=== PATIENT | female | born 1995 | race Caucasian/White ===

== ENCOUNTER 2018-11-25 01:53 | Inpatient (IN) | payer OTHER ==
[~2018-11-25] VITALS: Ht 160 cm; Wt 102.5 kg
[2018-11-25 02:27] LABS: BILIRUBIN,URINE SMALL (NEG); CLARITY,URINE CLEAR; COLOR,URINE AMBER; NITRITE,URINE NEGATIVE (NEG); PROTEIN,URINE 100 mg/dL (NEG-TRACE)
[2018-11-25 02:51] LABS: BACTERIA,URINE FEW /HPF (0-FEW); SQUAMOUS EPITHELIAL CELL,UR MANY /LPF; WBC,URINE >40 /HPF (0-4)
--- NOTE | 2018-11-25 03:12 | RAD ---
Indication:RUQ PAIN TECHNIQUE: Grayscale, color Doppler and spectral waveform is of the abdomen obtained. COMPARISON:None FINDINGS:The pancreas is within normal limits. CBD is dilated in the region of pancreatic head measuring 1 cm. IVC within normal limits. Main portal vein is patent. Liver is mildly enlarged measuring 19 cm in longest dimension. Distended gallbladder. No pericholecystic fluid. Stones are seen. Gallbladder wall is not appreciably thickened. CBD measures 8 mm in diameter. Right kidney measures 11.1 cm in length without hydronephrosis. IMPRESSION: 1. Mild hepatomegaly. 2. Cholelithiasis with distended gallbladder but without wall thickening or pericholecystic fluid. Findings are nonspecific. If concern for acute cholecystitis persists, further evaluation with HIDA scan recommended. 3. Dilated CBD may be secondary to distal obstructing stone. Further evaluation with MRCP recommended. Electronically signed by: Erasmo Pulido DO (11/25/2018 3:08 AM) [id number]
[2018-11-25 03:20] LABS: BASO % 0 % (0-3); EOS % 0 % (0-3); HEMATOCRIT 35.7 % (36.0-47.0); HEMOGLOBIN 11.2 g/dL (12.0-15.5); LYMPH # 1.4 x10^3/uL (1.0-4.8); LYMPH % 18 % (24-48); MEAN CORPUSCULAR HEMOGLOBIN 24 pg (25-35); MEAN CORPUSCULAR HGB CONC 31 g/dL (31-37); MEAN CORPUSCULAR VOLUME 77 fL (79-100); MONO # 0.2 x10^3/uL (0.0-1.1); MONO % 3 % (0-9); NEUT # 6.4 x10^3uL (1.8-7.7); NEUT % 79 % (31-73); PLATELET COUNT 493 x10^3/uL (140-400); RED BLOOD COUNT 4.62 x10^6/uL (3.50-5.40); RED CELL DISTRIBUTION WIDTH 16.2 % (11.5-14.5); WHITE BLOOD COUNT 8.1 x10^3/uL (4.0-11.0)
[2018-11-25] MEDS ORDERED: fentaNYL PF VIAL 100 MCG/2 ML VIAL IV ONE (03:30)
[2018-11-25 03:35] LABS: CALCIUM 8.7 mg/dL (8.5-10.1); CREATININE 0.8 mg/dL (0.6-1.0); GFR 89.7; POTASSIUM 3.9 mmol/L (3.5-5.1)
[2018-11-25 03:40] LABS: ALBUMIN 3.4 g/dL (3.4-5.0); ALBUMIN/GLOBULIN RATIO 0.9 (1.0-1.7); TOTAL BILIRUBIN 0.9 mg/dL (0.2-1.0); TOTAL PROTEIN 7.2 g/dL (6.4-8.2)
--- NOTE | 2018-11-25 03:57 | PHYS DOC ---
Past Medical History Past Medical History: Gallstones Past Surgical History: No Surgical History Alcohol Use: None Drug Use: None Adult General Chief Complaint Chief Complaint: ABDOMINAL PAIN HPI HPI Patient is a 23 year old F P/W CC OF ABDO PAIN RUQ INTERMITTENT X THE LAST FEW WEEKS. PPD 21 S/P INDUCTION FOR PROTEINURIA. PAIN SHARP RUQ WENT TO [facility] per her report they did not have an ultrasound machine negative for [place] she went home she threw up several times the pain is been constant for 6-8 hours it is radiating around to the back she finally would like to get this taken care of once and for all she was at [place] last week visiting family and had an ultrasound that showed gallstones but she did not want to get the surgery [place]. Review of Systems Review of Systems Constitutional: Denies fever or chills [] Eyes: Denies change in visual acuity, redness, or eye pain [] HENT: Denies nasal congestion or sore throat [] Respiratory: Denies cough or shortness of breath [] Cardiovascular: No additional information not addressed in HPI [] GI: Neurologic: Denies headache, focal weakness or sensory changes [] All other systems were reviewed and found to be within normal limits, except as documented in this note. Current Medications Current Medications Current Medications Medications (Trade) Dose Ordered Sig/Hussein Start Time Stop Time Status Last Admin Dose Admin Fentanyl Citrate (Fentanyl 2ml Vial) 50 mcg 1X ONCE 11/25/18 03:30 11/25/18 03:31 DC 11/25/18 03:34 50 MCG Allergies Allergies Allergies Coded Allergies Type Severity Reaction Last Updated Verified azithromycin Allergy Unknown 11/25/18 Yes Physical Exam Physical Exam Constitutional: Well developed, well nourished, no acute distress, non-toxic appearance. [] HENT: Normocephalic, atraumatic, bilateral external ears normal, oropharynx moist, no oral exudates, nose normal. [] Eyes: PERRLA, EOMI, conjunctiva normal, no discharge. [] Neck: Normal range of motion, no tenderness, supple, no stridor. [] Pulmonary: Normal respiratory effort no increased work of breathing no obvious chest wall trauma Abdomen: Bowel sounds normal, soft, RUQ tenderness, no masses, no pulsatile masses. [] Extremities: No tenderness, no cyanosis, no clubbing, ROM intact, no edema. [] Neurologic: Alert and oriented X 3, normal motor function, normal sensory function, no focal deficits noted. [] Psychologic: Affect normal, judgement normal, mood normal. [] Current Patient Data Vital Signs Vital Signs Date Time Temp Pulse Resp B/P (MAP) Pulse Ox O2 Delivery O2 Flow Rate FiO2 11/25/18 02:15 98.3 74 16 135/77 (96) 98 Room Air 98.3 Lab Values Laboratory Tests Test 11/25/18 01:12 11/25/18 01:55 11/25/18 03:10 POC Urine HCG, Qualitative Hcg negative (Negative) Urine Collection Type Unknown Urine Color Scarlett Urine Clarity Clear Urine pH 8.0 Urine Specific [place] >=1.030 Urine Protein 100 mg/dL (NEG-TRACE) Urine Glucose (UA) Negative mg/dL (NEG) Urine Ketones (Stick) Trace mg/dL (NEG) Urine Blood Negative (NEG) Urine Nitrite Negative (NEG) Urine Bilirubin Small (NEG) Urine Urobilinogen Dipstick 1.0 mg/dL (0.2 mg/dL) Urine Leukocyte Esterase Moderate (NEG) Urine RBC 11-20 /HPF (0-2) Urine WBC >40 /HPF (0-4) Urine Squamous Epithelial Cells Many /LPF Urine Bacteria Few /HPF (0-FEW) Urine Mucus Mod /LPF White Blood Count 8.1 x10^3/uL (4.0-11.0) Red Blood Count 4.62 x10^6/uL (3.50-5.40) Hemoglobin 11.2 g/dL (12.0-15.5) L Hematocrit 35.7 % (36.0-47.0) L Mean Corpuscular Volume 77 fL (79-100) L Mean Corpuscular Hemoglobin 24 pg (25-35) L Mean Corpuscular Hemoglobin Concent 31 g/dL (31-37) Red Cell Distribution Width 16.2 % (11.5-14.5) H Platelet Count 493 x10^3/uL (140-400) H Neutrophils (%) (Auto) 79 % (31-73) H Lymphocytes (%) (Auto) 18 % (24-48) L Monocytes (%) (Auto) 3 % (0-9) Eosinophils (%) (Auto) 0 % (0-3) Basophils (%) (Auto) 0 % (0-3) Neutrophils # (Auto) 6.4 x10^3uL (1.8-7.7) Lymphocytes # (Auto) 1.4 x10^3/uL (1.0-4.8) Monocytes # (Auto) 0.2 x10^3/uL (0.0-1.1) Eosinophils # (Auto) 0.0 x10^3/uL (0.0-0.7) Basophils # (Auto) 0.0 x10^3/uL (0.0-0.2) Sodium Level 143 mmol/L (136-145) Potassium Level 3.9 mmol/L (3.5-5.1) Chloride Level 102 mmol/L (98-107) Carbon Dioxide Level 29 mmol/L (21-32) Anion Gap 12 (6-14) Blood Urea Nitrogen 11 mg/dL (7-20) Creatinine 0.8 mg/dL (0.6-1.0) Estimated GFR (Cockcroft-Gault) 89.7 BUN/Creatinine Ratio 14 (6-20) Glucose Level 98 mg/dL (70-99) Calcium Level 8.7 mg/dL (8.5-10.1) Total Bilirubin 0.9 mg/dL (0.2-1.0) Aspartate Amino Transferase (AST) 62 U/L (15-37) H Alanine Aminotransferase (ALT) 52 U/L (14-59) Alkaline Phosphatase 176 U/L (46-116) H Total Protein 7.2 g/dL (6.4-8.2) Albumin 3.4 g/dL (3.4-5.0) Albumin/Globulin Ratio 0.9 (1.0-1.7) L Lipase 131 U/L (73-393) Laboratory Tests 11/25/18 03:10 Laboratory Tests 11/25/18 03:10 EKG EKG [] Radiology/Procedures Radiology/Procedures [] Impressions: IMPRESSION: 1. Mild hepatomegaly. 2. Cholelithiasis with distended gallbladder but without wall thickening or pericholecystic fluid. Findings are nonspecific. If concern for acute cholecystitis persists, further evaluation with HIDA scan recommended. 3. Dilated CBD may be secondary to distal obstructing stone. Further evaluation with MRCP recommended. Electronically signed by: Erasmo Snowden DO (11/25/2018 3:08 AM) [facility] DICTATED and SIGNED BY: ERASMO SNOWDEN DO DATE: 11/25/18307 Course & Med Decision Making Course & Med Decision Making Pertinent Labs and Imaging studies reviewed. (See chart for details) []SYMPTOMATIC BILIARY DISEASE COULD BE EARLY CHOLECYSTITIS V. CHOLEDOCHOLITHIASIS, WILL GIVE PAIN CONTROL, ABX, ADMIT TO CASTLE PER USUAL PROTOCOL INPATIENT CONSULTS. FURTHER IMAGING WILL BE NEEDED MOST LIKELY Dragon Disclaimer Dragon Disclaimer This electronic medical record was generated, in whole or in part, using a voice recognition dictation system. Departure Departure Impression: Primary Impression: Cholelithiasis Disposition: ADMITTED INPATIENT Admitting Physician: Cherry Barrera Condition: STABLE Referrals: NO PCP (PCP) ARCADIO WARREN MD Nov 25, 2018 03:57
[2018-11-25] MEDS ORDERED: ONDANSETRON PF 4 MG/2 ML VIAL. IV PRN ×2 (04:00→09:30)
[2018-11-25] MEDS ORDERED: PIPERACILLIN/TAZOBACTAM 3.375 GM in IV NORMAL SALINE 50ML 50 ML IV ONE (04:30)
[2018-11-25] MEDS: IV NORMAL SALINE 1000ML BAG 1,000 ML IV SCH ×2 (04:50→14:17)
[2018-11-25] MEDS: MORPHINE SULFATE 4 MG/ML VIAL. IV PRN ×4 (05:02→19:53)
[2018-11-25 05:18] VITALS: BP 109/61
[2018-11-25] MEDS ORDERED: BACITRACIN 50,000 UNIT in IV NORMAL SALINE 1000ML BAG 1,000 ML IRR ONE (06:00)
--- NOTE | 2018-11-25 06:32 | NUR ---
Admitted to room 420 at 0518 from ED, admission care done. POC discussed with patient and verbalized understanding.
[2018-11-25 07:00] VITALS: BP 106/52
--- NOTE | 2018-11-25 08:46 | PDOC2 ---
TOMMY PARSON HEMODIALYSIS CHARGE NURSE 11/25/18 0846: CONSULT Date of Consult Date of Consult DATE: 11/25/18 TIME: 08:42 Reason for Consult Reason for Consult: abdominal pain Referring Physician Referring Physician: ER Identification/Chief Complaint Chief Complaint abdominal pain Source Source: Chart review, Patient History of Present Illness Reason for Visit: RUQ pain, intermittently during This time worse, subjective fevers, chills Nausea, emesis No aggravating factors per PT 3 weeks from vaginal delivery Past Medical History Past Medical History no pertinent hx Past Surgical History Past Surgical History: No pertinent history Family History Family History: Other (noncontributory to current illness ) Social History No ALCOHOL: none Drugs: None Lives: with Family Current Problem List Problem List Problems Medical Problems: (1) Cholelithiasis Status: Acute Current Medications Current Medications Current Medications Fentanyl Citrate (Fentanyl 2ml Vial) 50 mcg 1X ONCE IV Last administered on 08/05at 03:34; Start 11/25/18 at 03:30; Stop 11/25/18 at 03:31; Status DC Ondansetron HCl (Zofran) 4 mg PRN Q8HRS PRN IV NAUSEA/VOMITING Last administered on 11/25/18at 05:01; Start 11/25/18 at 04:00; Stop 11/26/18 at 03:59 Morphine Sulfate (Morphine Sulfate) 4 mg PRN Q2HR PRN IV PAIN Last administered on 11/25/18at 05:02; Start 11/25/18 at 04:00; Stop 11/26/18 at 03:59 Sodium Chloride 1,000 ml @ 100 mls/hr Q10H IV Last administered on 11/25/18at 04:50; Start 11/25/18 at 04:00; Stop 11/26/18 at 03:59 Piperacillin Sod/ Tazobactam Sod 3.375 gm/Sodium Chloride 50 ml @ 100 mls/hr 1X ONCE IV Last administered on 11/25/18at 04:51; Start 11/25/18 at 04:30; Stop 11/25/18 at 04:59; Status DC Allergies Allergies: Coded Allergies: azithromycin (Verified Allergy, Unknown, 11/25/18) ROS General: YES: Fatigue, Appetite (loss) PSYCHOLOGICAL ROS: No: Anxiety, Depression Eyes: No Blurry vision, No Double vision HEENT: No: Heacaches, Sore Throat Hematological and Lymphatic: No: Bleeding Problems, Blood Clots Respiratory: No: Cough, Shortness of breath Cardiovascular: No Chest Pain, No Palpitations Genitourinary: No Dysuria, No Hematuria Musculoskeletal: No Joint Pain, No Muscle Pain Neurological: No Confusion, No Memory Loss Skin: No Pruritus, No Rash Physical Exam General: Alert, Oriented X3, Cooperative, No acute distress HEENT: PERRLA, Mucous membr. moist/pink Lungs: Clear to auscultation, Normal air movement Heart: Regular rate, Normal S1, Normal S2, No murmurs Abdomen: Soft, Other (RUQ TTP) Extremities: No clubbing, No cyanosis Skin: No rashes, No breakdown Neuro: Normal gait, Normal speech Psych/Mental Status: Mental status NL, Mood NL MUSCULOSKELETAL: No deformity, No swelling Vitals VITALS Vital Signs Date Time Temp Pulse Resp B/P (MAP) Pulse Ox O2 Delivery O2 Flow Rate FiO2 11/25/18 07:36 Room Air 11/25/18 07:00 98.1 71 16 106/52 (70) 94 98.1 Labs Labs Laboratory Tests Test 11/25/18 01:12 11/25/18 01:55 11/25/18 03:10 Bedside Urine HCG, Qualitative Hcg negative (Negative) Urine Collection Type Unknown Urine Color Scarlett Urine Clarity Clear Urine pH 8.0 Urine Specific [place] >=1.030 Urine Protein 100 mg/dL (NEG-TRACE) Urine Glucose (UA) Negative mg/dL (NEG) Urine Ketones (Stick) Trace mg/dL (NEG) Urine Blood Negative (NEG) Urine Nitrite Negative (NEG) Urine Bilirubin Small (NEG) Urine Urobilinogen Dipstick 1.0 mg/dL (0.2 mg/dL) Urine Leukocyte Esterase Moderate (NEG) Urine RBC 11-20 /HPF (0-2) Urine WBC >40 /HPF (0-4) Urine Squamous Epithelial Cells Many /LPF Urine Bacteria Few /HPF (0-FEW) Urine Mucus Mod /LPF White Blood Count 8.1 x10^3/uL (4.0-11.0) Red Blood Count 4.62 x10^6/uL (3.50-5.40) Hemoglobin 11.2 g/dL (12.0-15.5) Hematocrit 35.7 % (36.0-47.0) Mean Corpuscular Volume 77 fL (79-100) Mean Corpuscular Hemoglobin 24 pg (25-35) Mean Corpuscular Hemoglobin Concent 31 g/dL (31-37) Red Cell Distribution Width 16.2 % (11.5-14.5) Platelet Count 493 x10^3/uL (140-400) Neutrophils (%) (Auto) 79 % (31-73) Lymphocytes (%) (Auto) 18 % (24-48) Monocytes (%) (Auto) 3 % (0-9) Eosinophils (%) (Auto) 0 % (0-3) Basophils (%) (Auto) 0 % (0-3) Neutrophils # (Auto) 6.4 x10^3uL (1.8-7.7) Lymphocytes # (Auto) 1.4 x10^3/uL (1.0-4.8) Monocytes # (Auto) 0.2 x10^3/uL (0.0-1.1) Eosinophils # (Auto) 0.0 x10^3/uL (0.0-0.7) Basophils # (Auto) 0.0 x10^3/uL (0.0-0.2) Sodium Level 143 mmol/L (136-145) Potassium Level 3.9 mmol/L (3.5-5.1) Chloride Level 102 mmol/L (98-107) Carbon Dioxide Level 29 mmol/L (21-32) Anion Gap 12 (6-14) Blood Urea Nitrogen 11 mg/dL (7-20) Creatinine 0.8 mg/dL (0.6-1.0) Estimated GFR (Cockcroft-Gault) 89.7 BUN/Creatinine Ratio 14 (6-20) Glucose Level 98 mg/dL (70-99) Calcium Level 8.7 mg/dL (8.5-10.1) Total Bilirubin 0.9 mg/dL (0.2-1.0) Aspartate Amino Transf (AST/SGOT) 62 U/L (15-37) Alanine Aminotransferase (ALT/SGPT) 52 U/L (14-59) Alkaline Phosphatase 176 U/L (46-116) Total Protein 7.2 g/dL (6.4-8.2) Albumin 3.4 g/dL (3.4-5.0) Albumin/Globulin Ratio 0.9 (1.0-1.7) Lipase 131 U/L (73-393) Laboratory Tests Test 11/25/18 01:12 11/25/18 01:55 11/25/18 03:10 Bedside Urine HCG, Qualitative Hcg negative (Negative) Urine Collection Type Unknown Urine Color Scarlett Urine Clarity Clear Urine pH 8.0 Urine Specific [place] >=1.030 Urine Protein 100 mg/dL (NEG-TRACE) Urine Glucose (UA) Negative mg/dL (NEG) Urine Ketones (Stick) Trace mg/dL (NEG) Urine Blood Negative (NEG) Urine Nitrite Negative (NEG) Urine Bilirubin Small (NEG) Urine Urobilinogen Dipstick 1.0 mg/dL (0.2 mg/dL) Urine Leukocyte Esterase Moderate (NEG) Urine RBC 11-20 /HPF (0-2) Urine WBC >40 /HPF (0-4) Urine Squamous Epithelial Cells Many /LPF Urine Bacteria Few /HPF (0-FEW) Urine Mucus Mod /LPF White Blood Count 8.1 x10^3/uL (4.0-11.0) Red Blood Count 4.62 x10^6/uL (3.50-5.40) Hemoglobin 11.2 g/dL (12.0-15.5) Hematocrit 35.7 % (36.0-47.0) Mean Corpuscular Volume 77 fL (79-100) Mean Corpuscular Hemoglobin 24 pg (25-35) Mean Corpuscular Hemoglobin Concent 31 g/dL (31-37) Red Cell Distribution Width 16.2 % (11.5-14.5) Platelet Count 493 x10^3/uL (140-400) Neutrophils (%) (Auto) 79 % (31-73) Lymphocytes (%) (Auto) 18 % (24-48) Monocytes (%) (Auto) 3 % (0-9) Eosinophils (%) (Auto) 0 % (0-3) Basophils (%) (Auto) 0 % (0-3) Neutrophils # (Auto) 6.4 x10^3uL (1.8-7.7) Lymphocytes # (Auto) 1.4 x10^3/uL (1.0-4.8) Monocytes # (Auto) 0.2 x10^3/uL (0.0-1.1) Eosinophils # (Auto) 0.0 x10^3/uL (0.0-0.7) Basophils # (Auto) 0.0 x10^3/uL (0.0-0.2) Sodium Level 143 mmol/L (136-145) Potassium Level 3.9 mmol/L (3.5-5.1) Chloride Level 102 mmol/L (98-107) Carbon Dioxide Level 29 mmol/L (21-32) Anion Gap 12 (6-14) Blood Urea Nitrogen 11 mg/dL (7-20) Creatinine 0.8 mg/dL (0.6-1.0) Estimated GFR (Cockcroft-Gault) 89.7 BUN/Creatinine Ratio 14 (6-20) Glucose Level 98 mg/dL (70-99) Calcium Level 8.7 mg/dL (8.5-10.1) Total Bilirubin 0.9 mg/dL (0.2-1.0) Aspartate Amino Transf (AST/SGOT) 62 U/L (15-37) Alanine Aminotransferase (ALT/SGPT) 52 U/L (14-59) Alkaline Phosphatase 176 U/L (46-116) Total Protein 7.2 g/dL (6.4-8.2) Albumin 3.4 g/dL (3.4-5.0) Albumin/Globulin Ratio 0.9 (1.0-1.7) Lipase 131 U/L (73-393) Assessment/Plan Assessment/Plan abdominal pain cholelithiasis, distended GB, no inflammation, no pericholecystic fluid dilated CBD, LFTs normal will consult GI typically like to wait 6 weeks prior to surgery, will review with HOLDEN Pierson MD 11/25/18 1721: CONSULT Assessment/Plan Assessment/Plan pt seen, interviewed and examined earlier today as above has issues (moving soon, insurance issues) that she would like to proceed with surgery I explained it would be preferable to wait a few more weeks, but she is asking to proceed explained risks including but not limited to bleeding, infection, injury to bowel, liver or bile ducts with bile leak or bile blockage requiring further surgical interventions, possible open procedure or diarrhea post op also increased risks of DVT given the post state. she understands and would like to proceed tentatively on schedule for tomorrow will d/w her again in the AM Thanks for consult TOMMY PARSON APRN Nov 25, 2018 08:46 HOLDEN JOSHI MD Nov 25, 2018 17:21
[2018-11-25] MEDS ORDERED: ACETAMINOPHEN/CODEINE 300/30MG TABLET. PO PRN (09:30)
--- NOTE | 2018-11-25 09:57 | PDOC2 ---
GI CONSULT Reason For Consult: Cholelithiasis, possible choledocholithiasis HPI: HPI: 23 y/o female who gave 3 weeks ago @ [facility] - says was induced for RUQ pain and proteinuria. Then traveled to [place] where she was seen in an ER for upper abd pain - was told she had gallstones and that she should have surgery. Admitted through ER here last night - same pain (constant but getting worse - "band", upper abd wrapping around bilaterally, can spread diffusely) and n/v (twice). Normal WBC, Hgb 11.2, MCV 77, bili 0.9, AST 62, ALT 52, Alk Phos 176, lipase 131. On US: mild hepatomegaly, cholelithiasis w/ distended GB, dilated CBD (8mm ). H/o heartburn during - treated w/ Tums and also briefly with Nexium which was ineffective. Heartburn resolved after delivery. No dysphagia. No diarrhea, hematochezia, melena, or hematemesis. Some constipation since delivery - last stooled a couple days ago. No previous EGD or colonoscopy. No liver or pancreas history. PMH: PMH: denies FH: Family History: No pertinent hx (denies GI cancers) Social History: Smoke: No ALCOHOL: none Drugs: None ROS: GEN: Denies fevers, chills, sweats HEENT: Denies blurred vision, sore throat CV: Denies chest pain RESP: Denies shortness of air, cough GI: Per HPI : Denies hematuria, dysuria ENDO: Denies weight changes NEURO: Denies confusion, dizziness MSK: Denies weakness, joint pain/swelling SKIN: Denies jaundice, pruritus Vitals: Vitals: Vital Signs Date Time Temp Pulse Resp B/P (MAP) Pulse Ox O2 Delivery O2 Flow Rate FiO2 11/25/18 09:13 Room Air 11/25/18 07:00 98.1 71 16 106/52 (70) 94 98.1 Labs: Labs: Laboratory Tests Test 11/25/18 01:12 11/25/18 01:55 11/25/18 03:10 Bedside Urine HCG, Qualitative Hcg negative (Negative) Urine Collection Type Unknown Urine Color Scarlett Urine Clarity Clear Urine pH 8.0 Urine Specific [place] >=1.030 Urine Protein 100 mg/dL (NEG-TRACE) Urine Glucose (UA) Negative mg/dL (NEG) Urine Ketones (Stick) Trace mg/dL (NEG) Urine Blood Negative (NEG) Urine Nitrite Negative (NEG) Urine Bilirubin Small (NEG) Urine Urobilinogen Dipstick 1.0 mg/dL (0.2 mg/dL) Urine Leukocyte Esterase Moderate (NEG) Urine RBC 11-20 /HPF (0-2) Urine WBC >40 /HPF (0-4) Urine Squamous Epithelial Cells Many /LPF Urine Bacteria Few /HPF (0-FEW) Urine Mucus Mod /LPF White Blood Count 8.1 x10^3/uL (4.0-11.0) Red Blood Count 4.62 x10^6/uL (3.50-5.40) Hemoglobin 11.2 g/dL (12.0-15.5) Hematocrit 35.7 % (36.0-47.0) Mean Corpuscular Volume 77 fL (79-100) Mean Corpuscular Hemoglobin 24 pg (25-35) Mean Corpuscular Hemoglobin Concent 31 g/dL (31-37) Red Cell Distribution Width 16.2 % (11.5-14.5) Platelet Count 493 x10^3/uL (140-400) Neutrophils (%) (Auto) 79 % (31-73) Lymphocytes (%) (Auto) 18 % (24-48) Monocytes (%) (Auto) 3 % (0-9) Eosinophils (%) (Auto) 0 % (0-3) Basophils (%) (Auto) 0 % (0-3) Neutrophils # (Auto) 6.4 x10^3uL (1.8-7.7) Lymphocytes # (Auto) 1.4 x10^3/uL (1.0-4.8) Monocytes # (Auto) 0.2 x10^3/uL (0.0-1.1) Eosinophils # (Auto) 0.0 x10^3/uL (0.0-0.7) Basophils # (Auto) 0.0 x10^3/uL (0.0-0.2) Sodium Level 143 mmol/L (136-145) Potassium Level 3.9 mmol/L (3.5-5.1) Chloride Level 102 mmol/L (98-107) Carbon Dioxide Level 29 mmol/L (21-32) Anion Gap 12 (6-14) Blood Urea Nitrogen 11 mg/dL (7-20) Creatinine 0.8 mg/dL (0.6-1.0) Estimated GFR (Cockcroft-Gault) 89.7 BUN/Creatinine Ratio 14 (6-20) Glucose Level 98 mg/dL (70-99) Calcium Level 8.7 mg/dL (8.5-10.1) Total Bilirubin 0.9 mg/dL (0.2-1.0) Aspartate Amino Transf (AST/SGOT) 62 U/L (15-37) Alanine Aminotransferase (ALT/SGPT) 52 U/L (14-59) Alkaline Phosphatase 176 U/L (46-116) Total Protein 7.2 g/dL (6.4-8.2) Albumin 3.4 g/dL (3.4-5.0) Albumin/Globulin Ratio 0.9 (1.0-1.7) Lipase 131 U/L (73-393) Allergies: Coded Allergies: azithromycin (Verified Allergy, Unknown, 11/25/18) Medications: Current Medications Medications (Trade) Dose Ordered Sig/Hussein Route PRN Reason Start Time Stop Time Status Last Admin Dose Admin Fentanyl Citrate (Fentanyl 2ml Vial) 50 mcg 1X ONCE IV 11/25/18 03:30 11/25/18 03:31 DC 11/25/18 03:34 Ondansetron HCl (Zofran) 4 mg PRN Q8HRS PRN IV NAUSEA/VOMITING 11/25/18 04:00 11/25/18 09:24 DC 11/25/18 05:01 Morphine Sulfate (Morphine Sulfate) 4 mg PRN Q2HR PRN IV PAIN 11/25/18 04:00 11/26/18 03:59 11/25/18 09:13 Sodium Chloride 1,000 ml @ 100 mls/hr Q10H IV 11/25/18 04:00 11/26/18 03:59 11/25/18 04:50 Piperacillin Sod/ Tazobactam Sod 3.375 gm/Sodium Chloride 50 ml @ 100 mls/hr 1X ONCE IV 11/25/18 04:30 11/25/18 04:59 DC 11/25/18 04:51 Imaging: Imaging: RUQ US IMPRESSION: 1. Mild hepatomegaly. 2. Cholelithiasis with distended gallbladder but without wall thickening or pericholecystic fluid. Findings are nonspecific. If concern for acute cholecystitis persists, further evaluation with HIDA scan recommended. 3. Dilated CBD may be secondary to distal obstructing stone. Further evaluation with MRCP recommended. PE: GEN: NAD HEENT: Atraumatic, PERRL LUNGS: CTAB HEART: RRR ABD: NABS, S/ND, RUQ tenderness EXTREMITY: No edema SKIN: No rashes, no jaundice NEURO/PSYCH: A & O 3 A/P: A/P: Upper abd pain, n/v Cholelithiasis, dilated CBD (8mm) H/o heartburn - resolved after recent delivery ?constipation Anemia CRC screen - average risk -- D/w Dr. Orr - recommend cholecystectomy w/ IOC considering normal bili. RN reports surgery would ideally wait til 6 weeks . MARILOU MARIE Nov 25, 2018 09:57
--- NOTE | 2018-11-25 10:58 | NUR ---
SW following for discharge planning. Discussed with RN, RN advised no SW needs and anticipates possible discharge home with self care today (11/25/18).
[2018-11-25 11:00] VITALS: BP 108/55
--- NOTE | 2018-11-25 11:08 | PDOC1 ---
History and Physical Date of Admission Date of Admission DATE: 11/25/18 TIME: 11:04 Identification/Chief Complaint Chief Complaint abd pain Source Source: Caregiver, Chart review, Patient History of Present Illness History of Present Illness 23-year-old obese white female with a BMI 40 was 3 weeks , started to have abdominal pain right upper quadrant immediately days after giving . It was a normal vaginal delivery with no complications. No fever, no diarrhea. No emesis. Imaging shows cholelithiasis with cholecystitis and maybe CBD stones. Hence GS and GI consulted. GS is worrisome to do surgery 3 weeks - they usually do at 6 weeks and patient is aware of this. Patient tells me she will lose her insurance next week if she is moving to another state next week and hence she would like to have the surgery while in- house today. Patient has been nothing by mouth. I did relay this information to mid level and she will discuss with GS. GI also consulted, so far waiting for GS decision about surgery or neurosurgery Otherwise patient has no other past medical history Past Medical History Cardiovascular: No pertinent hx Pulmonary: No pertinent hx GI: No pertinent hx Heme/Onc: No pertinent hx Hepatobiliary: No pertinent hx Psych: No pertinent hx Rheumatologic: No pertinent hx Infectious disease: No pertinent hx ENT: No pertinent hx Renal/: No pertinent hx Endocrine: No pertinent hx Dermatology: No pertinent hx Past Surgical History Past Surgical History: Other (NSD 3 weeks ago), No pertinent history Family History Family History: Other (noncontributory to current illness ) Social History Smoke: No ALCOHOL: none Drugs: None Current Problem List Problem List Problems Medical Problems: (1) Cholelithiasis Status: Acute Current Medications Current Medications Current Medications Fentanyl Citrate (Fentanyl 2ml Vial) 50 mcg 1X ONCE IV Last administered on 08/05at 03:34; Start 11/25/18 at 03:30; Stop 11/25/18 at 03:31; Status DC Ondansetron HCl (Zofran) 4 mg PRN Q8HRS PRN IV NAUSEA/VOMITING Last administered on 11/25/18at 05:01; Start 11/25/18 at 04:00; Stop 11/25/18 at 09:24 ; Status DC Morphine Sulfate (Morphine Sulfate) 4 mg PRN Q2HR PRN IV PAIN Last administered on 11/25/18at 09:13; Start 11/25/18 at 04:00; Stop 11/26/18 at 03:59 Sodium Chloride 1,000 ml @ 100 mls/hr Q10H IV Last administered on 11/25/18at 04:50; Start 11/25/18 at 04:00; Stop 11/26/18 at 03:59 Piperacillin Sod/ Tazobactam Sod 3.375 gm/Sodium Chloride 50 ml @ 100 mls/hr 1X ONCE IV Last administered on 11/25/18at 04:51; Start 11/25/18 at 04:30; Stop 11/25/18 at 04:59; Status DC Ondansetron HCl (Zofran) 4 mg PRN Q6HRS PRN IV NAUSEA/VOMITING; Start 11/25/18 at 09:30 Acetaminophen (Tylenol) 500 mg PRN Q6HRS PRN PO MILD PAIN / TEMP; Start at 09:30 Acetaminophen/ Codeine Phosphate (Tylenol #3) 1 tab PRN Q6HRS PRN PO MODERATE- SEVERE PAIN; Start 11/25/18 at 09:30 Polyethylene Glycol (miraLAX PACKET) 17 gm DAILY PO ; Start 11/25/18 at 10:30 Allergies Allergies: Coded Allergies: azithromycin (Verified Allergy, Unknown, 11/25/18) ROS Review of System As per history of present illness, the rest of ROS 14 point negative Physical Exam General: Alert, Oriented X3, Cooperative, No acute distress HEENT: Atraumatic, EOMI Lungs: Clear to auscultation, Normal air movement Heart: S1S2, RRR, no thrills, no rubs, no murmurs Cardiovascular: S1, S2 Breasts: Normal, Rt breast nml w/o mass, Lt breast nml w/o mass, Nipples normal Abdomen: Soft, Other (right upper quadrant pain on palpation, normoactive bowel sounds, no rebound, no guarding) Rectal Exam: not examined PELVIC: Nml ext genitalia Extremities: No clubbing, No cyanosis, No edema, Normal pulses, No tenderness/ swelling Skin: No rashes, No breakdown, No significant lesion Neuro: Normal gait, Normal speech, Strength at 5/5 X4 ext, Normal tone, Sensation intact, Cranial nerves 3-12 NL, Reflexes 2+ Psych/Mental Status: Mental status NL, Mood NL Vitals Vitals Vital Signs Date Time Temp Pulse Resp B/P (MAP) Pulse Ox O2 Delivery O2 Flow Rate FiO2 11/25/18 10:01 Room Air 11/25/18 07:00 98.1 71 16 106/52 (70) 94 98.1 Labs Labs Laboratory Tests Test 11/25/18 01:12 11/25/18 01:55 11/25/18 03:10 Bedside Urine HCG, Qualitative Hcg negative (Negative) Urine Collection Type Unknown Urine Color Scarlett Urine Clarity Clear Urine pH 8.0 Urine Specific [place] >=1.030 Urine Protein 100 mg/dL (NEG-TRACE) Urine Glucose (UA) Negative mg/dL (NEG) Urine Ketones (Stick) Trace mg/dL (NEG) Urine Blood Negative (NEG) Urine Nitrite Negative (NEG) Urine Bilirubin Small (NEG) Urine Urobilinogen Dipstick 1.0 mg/dL (0.2 mg/dL) Urine Leukocyte Esterase Moderate (NEG) Urine RBC 11-20 /HPF (0-2) Urine WBC >40 /HPF (0-4) Urine Squamous Epithelial Cells Many /LPF Urine Bacteria Few /HPF (0-FEW) Urine Mucus Mod /LPF White Blood Count 8.1 x10^3/uL (4.0-11.0) Red Blood Count 4.62 x10^6/uL (3.50-5.40) Hemoglobin 11.2 g/dL (12.0-15.5) Hematocrit 35.7 % (36.0-47.0) Mean Corpuscular Volume 77 fL (79-100) Mean Corpuscular Hemoglobin 24 pg (25-35) Mean Corpuscular Hemoglobin Concent 31 g/dL (31-37) Red Cell Distribution Width 16.2 % (11.5-14.5) Platelet Count 493 x10^3/uL (140-400) Neutrophils (%) (Auto) 79 % (31-73) Lymphocytes (%) (Auto) 18 % (24-48) Monocytes (%) (Auto) 3 % (0-9) Eosinophils (%) (Auto) 0 % (0-3) Basophils (%) (Auto) 0 % (0-3) Neutrophils # (Auto) 6.4 x10^3uL (1.8-7.7) Lymphocytes # (Auto) 1.4 x10^3/uL (1.0-4.8) Monocytes # (Auto) 0.2 x10^3/uL (0.0-1.1) Eosinophils # (Auto) 0.0 x10^3/uL (0.0-0.7) Basophils # (Auto) 0.0 x10^3/uL (0.0-0.2) Sodium Level 143 mmol/L (136-145) Potassium Level 3.9 mmol/L (3.5-5.1) Chloride Level 102 mmol/L (98-107) Carbon Dioxide Level 29 mmol/L (21-32) Anion Gap 12 (6-14) Blood Urea Nitrogen 11 mg/dL (7-20) Creatinine 0.8 mg/dL (0.6-1.0) Estimated GFR (Cockcroft-Gault) 89.7 BUN/Creatinine Ratio 14 (6-20) Glucose Level 98 mg/dL (70-99) Calcium Level 8.7 mg/dL (8.5-10.1) Total Bilirubin 0.9 mg/dL (0.2-1.0) Aspartate Amino Transf (AST/SGOT) 62 U/L (15-37) Alanine Aminotransferase (ALT/SGPT) 52 U/L (14-59) Alkaline Phosphatase 176 U/L (46-116) Total Protein 7.2 g/dL (6.4-8.2) Albumin 3.4 g/dL (3.4-5.0) Albumin/Globulin Ratio 0.9 (1.0-1.7) Lipase 131 U/L (73-393) Laboratory Tests Test 11/25/18 01:12 11/25/18 01:55 11/25/18 03:10 Bedside Urine HCG, Qualitative Hcg negative (Negative) Urine Collection Type Unknown Urine Color Scarlett Urine Clarity Clear Urine pH 8.0 Urine Specific [place] >=1.030 Urine Protein 100 mg/dL (NEG-TRACE) Urine Glucose (UA) Negative mg/dL (NEG) Urine Ketones (Stick) Trace mg/dL (NEG) Urine Blood Negative (NEG) Urine Nitrite Negative (NEG) Urine Bilirubin Small (NEG) Urine Urobilinogen Dipstick 1.0 mg/dL (0.2 mg/dL) Urine Leukocyte Esterase Moderate (NEG) Urine RBC 11-20 /HPF (0-2) Urine WBC >40 /HPF (0-4) Urine Squamous Epithelial Cells Many /LPF Urine Bacteria Few /HPF (0-FEW) Urine Mucus Mod /LPF White Blood Count 8.1 x10^3/uL (4.0-11.0) Red Blood Count 4.62 x10^6/uL (3.50-5.40) Hemoglobin 11.2 g/dL (12.0-15.5) Hematocrit 35.7 % (36.0-47.0) Mean Corpuscular Volume 77 fL (79-100) Mean Corpuscular Hemoglobin 24 pg (25-35) Mean Corpuscular Hemoglobin Concent 31 g/dL (31-37) Red Cell Distribution Width 16.2 % (11.5-14.5) Platelet Count 493 x10^3/uL (140-400) Neutrophils (%) (Auto) 79 % (31-73) Lymphocytes (%) (Auto) 18 % (24-48) Monocytes (%) (Auto) 3 % (0-9) Eosinophils (%) (Auto) 0 % (0-3) Basophils (%) (Auto) 0 % (0-3) Neutrophils # (Auto) 6.4 x10^3uL (1.8-7.7) Lymphocytes # (Auto) 1.4 x10^3/uL (1.0-4.8) Monocytes # (Auto) 0.2 x10^3/uL (0.0-1.1) Eosinophils # (Auto) 0.0 x10^3/uL (0.0-0.7) Basophils # (Auto) 0.0 x10^3/uL (0.0-0.2) Sodium Level 143 mmol/L (136-145) Potassium Level 3.9 mmol/L (3.5-5.1) Chloride Level 102 mmol/L (98-107) Carbon Dioxide Level 29 mmol/L (21-32) Anion Gap 12 (6-14) Blood Urea Nitrogen 11 mg/dL (7-20) Creatinine 0.8 mg/dL (0.6-1.0) Estimated GFR (Cockcroft-Gault) 89.7 BUN/Creatinine Ratio 14 (6-20) Glucose Level 98 mg/dL (70-99) Calcium Level 8.7 mg/dL (8.5-10.1) Total Bilirubin 0.9 mg/dL (0.2-1.0) Aspartate Amino Transf (AST/SGOT) 62 U/L (15-37) Alanine Aminotransferase (ALT/SGPT) 52 U/L (14-59) Alkaline Phosphatase 176 U/L (46-116) Total Protein 7.2 g/dL (6.4-8.2) Albumin 3.4 g/dL (3.4-5.0) Albumin/Globulin Ratio 0.9 (1.0-1.7) Lipase 131 U/L (73-393) VTE Prophylaxis Ordered VTE Prophylaxis Devices: Yes VTE Pharmacological Prophylaxi: Yes Assessment/Plan Assessment/Plan Cholelithiasis with cholecystitis, symptomatic 3 weeks Overweight, BMI 40 Plan: still nothing by mouth Await GS Rounds Discussed with GS/GI and RN If patient goes home today I have some pain meds on chart SAUL BIRCH MD Nov 25, 2018 11:08
[2018-11-25] MEDS: ACETAMINOPHEN 500 MG TABLET PO PRN (13:45)
[2018-11-25] MEDS: POLYETHYLENE GLYCOL 3350 17 GM PACKET. PO SCH (13:46)
[2018-11-25 15:00] VITALS: BP 106/46
[2018-11-25] MEDS ORDERED: ENOXAPARIN 40 MG/0.4 ML SYRINGE. SQ ONE (17:30)
[2018-11-25 19:00] VITALS: BP 123/53
[2018-11-25 23:00] VITALS: BP 125/44
[2018-11-26] VITALS (12 sets, daily range): BP systolic 89–132; BP diastolic 41–61
[2018-11-26] MEDS: ACETAMINOPHEN 500 MG TABLET PO PRN (00:16)
[2018-11-26] MEDS: IV NORMAL SALINE 1000ML BAG 1,000 ML IV SCH (00:17)
[2018-11-26] MEDS: MORPHINE SULFATE 4 MG/ML VIAL. IV PRN (05:06)
[2018-11-26] MEDS ORDERED: IOHEXOL 300 MG/ML 100ML VIAL. ONE (06:01)
[2018-11-26] MEDS ORDERED: SURGICEL HEMOSTAT 4X8 EACH. ONE (06:01)
[2018-11-26] MEDS ORDERED: BUPIVAC MPF-EPI 0.5%-1:200000 30 ML VIAL. ONE (06:01)
[2018-11-26] MEDS ORDERED: GLUCAGON,HUMAN RECOMBINANT 1 MG/ML VIAL. ONE (06:01)
[2018-11-26] MEDS ORDERED: ONDANSETRON PF 4 MG/2 ML VIAL. IV PRN ×2 (07:00→10:15)
[2018-11-26] MEDS ORDERED: HYDROmorphone 2 MG/ML VIAL IV PRN ×2 (07:00→10:15)
[2018-11-26] MEDS ORDERED: PROCHLORPERAZINE 10 MG/2 ML VIAL. IV PRN (07:00)
[2018-11-26] MEDS ORDERED: fentaNYL PF VIAL 100 MCG/2 ML VIAL IV PRN ×2 (07:00)
[2018-11-26] MEDS ORDERED: MORPHINE SULFATE 2 MG/ML VIAL. IV PRN (07:00)
[2018-11-26] MEDS ORDERED: IV RINGERS,LACTATED 1000ML 1,000 ML IV SCH (07:00)
[2018-11-26] MEDS ORDERED: LIDOCAINE 1% PF 2 ML VIAL. ID PRN (07:00)
--- NOTE | 2018-11-26 07:30 | NUR ---
Pt to surgery by bed. Head to toe assessment done prior to leaving the floor. No family at bedside.
[2018-11-26] MEDS ORDERED: PROPOFOL 20 ML IV ONE (07:36)
[2018-11-26] MEDS ORDERED: ROCURONIUM 50 MG/5 ML VIAL. ONE (07:36)
[2018-11-26] MEDS ORDERED: LIDOCAINE 2% PF 5 ML VIAL. ONE (07:36)
[2018-11-26] MEDS ORDERED: SUCCINYLCHOLINE 200 MG/10 ML VIAL. ONE (07:36)
[2018-11-26] MEDS ORDERED: fentaNYL PF VIAL 100 MCG/2 ML VIAL ONE ×2 (07:36→08:56)
[2018-11-26] MEDS ORDERED: ONDANSETRON PF 4 MG/2 ML VIAL. ONE (08:30)
[2018-11-26] MEDS ORDERED: DEXAMETHASONE SOD PHOS 20 MG/5 ML VIAL. ONE (08:30)
[2018-11-26] MEDS ORDERED: NEOSTIGMINE 10 MG/10 ML VIAL. ONE (08:34)
[2018-11-26] MEDS ORDERED: SEVOFLURANE 31 TO 60 MINUTES. IH ONE (08:34)
[2018-11-26] MEDS ORDERED: GLYCOPYRROLATE 1 MG/5 ML VIAL. ONE (08:35)
[2018-11-26] MEDS: POLYETHYLENE GLYCOL 3350 17 GM PACKET. PO SCH (09:00)
--- NOTE | 2018-11-26 09:31 | RAD ---
Intraoperative cholangiogram, 11/26/2018: HISTORY: Cholecystectomy 5 spot films from surgery are presented for review. Contrast has been injected into the cystic duct remnant. 0.29 minutes of fluoroscopy time was utilized. There is mild dilatation of the common bile duct. There is no extension of contrast into the duodenum. No definite intraluminal filling defect is seen. The incompletely opacified intrahepatic ducts are unremarkable. No contrast extravasation is evident. IMPRESSION: Obstruction to flow of contrast into the duodenum which could be due to ampullary spasm versus obstruction by an occult calculus, stricture or neoplasm. Electronically signed by: Walt Calderon MD (11/26/2018 9:28 AM) [facility]
[2018-11-26] MEDS ORDERED: ENOXAPARIN 40 MG/0.4 ML SYRINGE. SQ SCH (10:15)
[2018-11-26] MEDS ORDERED: DEXTROSE 50% 25 GM / 50ML DISP.SYRIN. IV PRN (10:15)
[2018-11-26] MEDS ORDERED: 0.9 % SODIUM CHLORIDE 10 ML DISP.SYRIN. IV PRN (10:15)
[2018-11-26] MEDS ORDERED: oxyCODONE/APAP 5/325 1 TAB TABLET PO PRN (10:15)
[2018-11-26] MEDS ORDERED: diphenhydrAMINE HCL 25 MG CAPSULE PO PRN (10:15)
--- NOTE | 2018-11-26 10:22 | PDOC ---
BRIEF OPERATIVE NOTE Date: Nov 26, 2018 Pre-Op Diagnosis symptomatic cholelithiasis Post-Op Diagnosis same with acute cholecystitis Procedure Performed l/s jo ann with grams Surgeon Jovi Half Section Ironer Sandrine DOYLE Anesthesia Type: General Blood Loss 20cc IV Fluid 1000cc Specimens Obtained GB Findings edematous GB, no contrast into duodenum on grams Complications none Operative Note WK # [id number] HOLDEN JOSHI MD Nov 26, 2018 10:22
--- NOTE | 2018-11-26 11:00 | NUR ---
Pt back from surgery by bed, A&Ox3, VSS on 2L nc. C/o abd pain 04/26. IVF infusing. Lap sites x3 CDI, SHERYL to RUQ in place with minimal serosanguineous drainage. Tolerating ice chips and water at this time. Dr. Davenport in room at time of arrival to unit from PACU. Side rails up x3, call light within reach, will continue to monitor.
[2018-11-26 11:05] LABS: ALBUMIN 2.7 g/dL (3.4-5.0); DIRECT BILIRUBIN 0.3 mg/dL (0.0-0.2); TOTAL BILIRUBIN 0.5 mg/dL (0.2-1.0); TOTAL PROTEIN 5.9 g/dL (6.4-8.2)
[2018-11-26] MEDS: DOCUSATE SODIUM 100 MG CAPSULE. PO SCH ×2 (11:18→21:09)
[2018-11-26] MEDS: POTASSIUM CL 20MEQ-0.45% NACL 1,000 ML IV SCH (11:18)
--- NOTE | 2018-11-26 11:18 | PDOC ---
PROGRESS NOTES Chief Complaint Chief Complaint Cholelithiasis with cholecystitis, symptomatic - is/ post laparoscopic cholecystectomy 11/26/18 3 weeks Overweight, BMI 40 History of Present Illness History of Present Illness SHe just had cholecystectomy few minutes ago Sats 80%, I did encourage her to use IS and take deep breaths Now has indwelling SHERYL didn't Plan: postop care dw with RN at bedside Vitals Vitals Vital Signs Date Time Temp Pulse Resp B/P (MAP) Pulse Ox O2 Delivery O2 Flow Rate FiO2 11/26/18 10:51 97.4 78 20 102/45 92 Nasal Cannula 2 97.4 Physical Exam General: Alert, Oriented X3, Cooperative, No acute distress Heart: Regular rate, Normal S1, Normal S2, No murmurs Abdomen: Soft, Other (right upper quadrant pain on palpation, normoactive bowel sounds, no rebound, no guarding) Extremities: No clubbing, No cyanosis, No edema, Normal pulses, No tenderness/ swelling Skin: No rashes, No breakdown, No significant lesion Labs LABS Laboratory Tests Test 11/26/18 10:35 Total Bilirubin 0.5 mg/dL (0.2-1.0) Direct Bilirubin 0.3 mg/dL (0.0-0.2) Aspartate Amino Transf (AST/SGOT) 68 U/L (15-37) Alanine Aminotransferase (ALT/SGPT) 61 U/L (14-59) Alkaline Phosphatase 146 U/L (46-116) Total Protein 5.9 g/dL (6.4-8.2) Albumin 2.7 g/dL (3.4-5.0) Review of Systems Review of Systems Postop pain, laparoscopic dressing Assessment and Plan Assessmemt and Plan Problems Medical Problems: (1) Cholelithiasis Status: Acute Comment Review of Relevant I have reviewed the following items gautam (where applicable) has been applied. Labs Laboratory Tests Test 11/25/18 01:12 11/25/18 01:55 11/25/18 03:10 11/26/18 10:35 Bedside Urine HCG, Qualitative Hcg negative (Negative) Urine Collection Type Unknown Urine Color [place] Urine Clarity Clear Urine pH 8.0 Urine Specific [place] >=1.030 Urine Protein 100 mg/dL (NEG-TRACE) Urine Glucose (UA) Negative mg/dL (NEG) Urine Ketones (Stick) Trace mg/dL (NEG) Urine Blood Negative (NEG) Urine Nitrite Negative (NEG) Urine Bilirubin Small (NEG) Urine Urobilinogen Dipstick 1.0 mg/dL (0.2 mg/dL) Urine Leukocyte Esterase Moderate (NEG) Urine RBC 11-20 /HPF (0-2) Urine WBC >40 /HPF (0-4) Urine Squamous Epithelial Cells Many /LPF Urine Bacteria Few /HPF (0-FEW) Urine Mucus Mod /LPF White Blood Count 8.1 x10^3/uL (4.0-11.0) Red Blood Count 4.62 x10^6/uL (3.50-5.40) Hemoglobin 11.2 g/dL (12.0-15.5) Hematocrit 35.7 % (36.0-47.0) Mean Corpuscular Volume 77 fL (79-100) Mean Corpuscular Hemoglobin 24 pg (25-35) Mean Corpuscular Hemoglobin Concent 31 g/dL (31-37) Red Cell Distribution Width 16.2 % (11.5-14.5) Platelet Count 493 x10^3/uL (140-400) Neutrophils (%) (Auto) 79 % (31-73) Lymphocytes (%) (Auto) 18 % (24-48) Monocytes (%) (Auto) 3 % (0-9) Eosinophils (%) (Auto) 0 % (0-3) Basophils (%) (Auto) 0 % (0-3) Neutrophils # (Auto) 6.4 x10^3uL (1.8-7.7) Lymphocytes # (Auto) 1.4 x10^3/uL (1.0-4.8) Monocytes # (Auto) 0.2 x10^3/uL (0.0-1.1) Eosinophils # (Auto) 0.0 x10^3/uL (0.0-0.7) Basophils # (Auto) 0.0 x10^3/uL (0.0-0.2) Sodium Level 143 mmol/L (136-145) Potassium Level 3.9 mmol/L (3.5-5.1) Chloride Level 102 mmol/L (98-107) Carbon Dioxide Level 29 mmol/L (21-32) Anion Gap 12 (6-14) Blood Urea Nitrogen 11 mg/dL (7-20) Creatinine 0.8 mg/dL (0.6-1.0) Estimated GFR (Cockcroft-Gault) 89.7 BUN/Creatinine Ratio 14 (6-20) Glucose Level 98 mg/dL (70-99) Calcium Level 8.7 mg/dL (8.5-10.1) Total Bilirubin 0.9 mg/dL (0.2-1.0) 0.5 mg/dL (0.2-1.0) Aspartate Amino Transf (AST/SGOT) 62 U/L (15-37) 68 U/L (15-37) Alanine Aminotransferase (ALT/SGPT) 52 U/L (14-59) 61 U/L (14-59) Alkaline Phosphatase 176 U/L (46-116) 146 U/L (46-116) Total Protein 7.2 g/dL (6.4-8.2) 5.9 g/dL (6.4-8.2) Albumin 3.4 g/dL (3.4-5.0) 2.7 g/dL (3.4-5.0) Albumin/Globulin Ratio 0.9 (1.0-1.7) Lipase 131 U/L (73-393) Direct Bilirubin 0.3 mg/dL (0.0-0.2) Laboratory Tests Test 11/26/18 10:35 Total Bilirubin 0.5 mg/dL (0.2-1.0) Direct Bilirubin 0.3 mg/dL (0.0-0.2) Aspartate Amino Transf (AST/SGOT) 68 U/L (15-37) Alanine Aminotransferase (ALT/SGPT) 61 U/L (14-59) Alkaline Phosphatase 146 U/L (46-116) Total Protein 5.9 g/dL (6.4-8.2) Albumin 2.7 g/dL (3.4-5.0) Medications Current Medications Fentanyl Citrate (Fentanyl 2ml Vial) 50 mcg 1X ONCE IV Last administered on 08/05at 03:34; Start 11/25/18 at 03:30; Stop 11/25/18 at 03:31; Status DC Ondansetron HCl (Zofran) 4 mg PRN Q8HRS PRN IV NAUSEA/VOMITING Last administered on 11/25/18at 05:01; Start 11/25/18 at 04:00; Stop 11/25/18 at 09:24 ; Status DC Morphine Sulfate (Morphine Sulfate) 4 mg PRN Q2HR PRN IV PAIN Last administered on 11/26/18at 05:06; Start 11/25/18 at 04:00; Stop 11/27/18 at 03:58 Sodium Chloride 1,000 ml @ 100 mls/hr Q10H IV Last administered on 11/26/18at 00:17; Start 11/25/18 at 04:00; Stop 11/26/18 at 03:59; Status DC Piperacillin Sod/ Tazobactam Sod 3.375 gm/Sodium Chloride 50 ml @ 100 mls/hr 1X ONCE IV Last administered on 11/25/18at 04:51; Start 11/25/18 at 04:30; Stop 11/25/18 at 04:59; Status DC Ondansetron HCl (Zofran) 4 mg PRN Q6HRS PRN IV NAUSEA/VOMITING; Start 11/25/18 at 09:30 Acetaminophen (Tylenol) 500 mg PRN Q6HRS PRN PO MILD PAIN / TEMP Last administered on 11/26/18at 00:16; Start 11/25/18 at 09:30 Acetaminophen/ Codeine Phosphate (Tylenol #3) 1 tab PRN Q6HRS PRN PO MODERATE- SEVERE PAIN; Start 11/25/18 at 09:30 Polyethylene Glycol (miraLAX PACKET) 17 gm DAILY PO Last administered on at 13:46; Start 11/25/18 at 10:30 Bacitracin 89837 unit/Sodium Chloride 1,000 ml @ 1,000 mls/hr 1X ONCE IRR ; Start 11/25/18 at 06:00; Stop 11/25/18 at 06:59; Status UNV Cefazolin Sodium/ Dextrose 50 ml @ 100 mls/hr 1X PREOP PRN IV PRIOR TO PROCEDURE; Start 11/25/18 at 06:00; Status UNV Ondansetron HCl (Zofran) 4 mg PRN Q6HRS PRN IV NAUSEA/VOMITING; Start 11/26/18 at 07:00; Stop 11/27/18 at 06:59 Fentanyl Citrate (Fentanyl 2ml Vial) 25 mcg PRN Q5MIN PRN IV MILD PAIN; Start 11/26/18 at 07:00; Stop 11/27/18 at 06:59 Fentanyl Citrate (Fentanyl 2ml Vial) 50 mcg PRN Q5MIN PRN IV MODERATE TO SEVERE PAIN Last administered on 11/26/18at 10:33; Start 11/26/18 at 07:00; Stop 11/27/18 at 06:59 Morphine Sulfate (Morphine Sulfate) 1 mg PRN Q10MIN PRN IV SEVERE PAIN; Start 11/26/18 at 07:00; Stop 11/27/18 at 06:59 Ringer's Solution 1,000 ml @ 30 mls/hr Q24H IV Last administered on 11/26/18at 10:05; Start 11/26/18 at 07:00; Stop 11/26/18 at 18:59 Lidocaine HCl (Xylocaine-Mpf 1% 2ml Vial) 2 ml PRN 1X PRN ID PRIOR TO IV START ; Start 11/26/18 at 07:00; Stop 11/27/18 at 06:59 Hydromorphone HCl (Dilaudid) 0.5 mg PRN Q10MIN PRN IV SEV PAIN, Second choice; Start 11/26/18 at 07:00; Stop 11/27/18 at 06:59 Prochlorperazine Edisylate (Compazine) 5 mg PACU PRN PRN IV NAUSEA, MRX1; Start 11/26/18 at 07:00; Stop 11/27/18 at 06:59 Enoxaparin Sodium (Lovenox 40mg Syringe) 40 mg 1X ONCE SQ Last administered on 11/25/18at 17:31; Start 11/25/18 at 17:30; Stop 11/25/18 at 17:31; Status DC Bupivacaine HCl/ Epinephrine Bitart (Sensorcain-Mpf Epi 0.5%-1:[id number]) 30 ml STK -MED ONCE .ROUTE Last administered on 11/26/18at 07:03; Start 11/26/18 at 06:01 ; Stop 11/26/18 at 07:02; Status DC Glucagon (Glucagen) 1 mg STK-MED ONCE .ROUTE Last administered on 11/26/18at 09: 11; Start 11/26/18 at 06:01; Stop 11/26/18 at 07:02; Status DC Iohexol (Omnipaque 300 Mg/ml) 100 ml STK-MED ONCE .ROUTE Last administered on at 07:03; Start 11/26/18 at 06:01; Stop 11/26/18 at 07:02; Status DC Cellulose (Surgicel Hemostat 4x8) 1 each STK-MED ONCE .ROUTE ; Start 11/26/18 at 06:01; Stop 11/26/18 at 07:02; Status DC Propofol 20 ml @ As Directed STK-MED ONCE IV ; Start 11/26/18 at 07:36; Stop 09/04 at 07:37; Status DC Lidocaine HCl (Lidocaine Pf 2% Vial) 5 ml STK-MED ONCE .ROUTE ; Start 11/26/18 at 07:36; Stop 11/26/18 at 07:37; Status DC Succinylcholine Chloride (Anectine) 200 mg STK-MED ONCE .ROUTE ; Start 11/26/18 at 07:36; Stop 11/26/18 at 07:37; Status DC Rocuronium [place] (Zemuron) 50 mg STK-MED ONCE .ROUTE ; Start 11/26/18 at 07:36 ; Stop 11/26/18 at 07:37; Status DC Fentanyl Citrate (Fentanyl 2ml Vial) 100 mcg STK-MED ONCE .ROUTE ; Start at 07:36; Stop 11/26/18 at 07:37; Status DC Cefazolin Sodium/ Dextrose 50 ml @ 100 mls/hr 1X ONCE IV ; Start 11/26/18 at 08:30; Stop 11/26/18 at 08:59; Status DC Cefazolin Sodium/ Dextrose 50 ml @ As Directed STK-MED ONCE IV ; Start 11/26/18 at 08:23; Stop 11/26/18 at 08:24; Status DC Dexamethasone Sodium Phosphate (Decadron) 20 mg STK-MED ONCE .ROUTE ; Start 09/04 at 08:30; Stop 11/26/18 at 08:31; Status DC Ondansetron HCl (Zofran) 4 mg STK-MED ONCE .ROUTE ; Start 11/26/18 at 08:30; Stop 11/26/18 at 08:31; Status DC Sevoflurane (Ultane) 30 ml STK-MED ONCE IH ; Start 11/26/18 at 08:34; Stop 11/26 at 08:35; Status DC Neostigmine Methylsulfate (Bloxiverz) 10 mg STK-MED ONCE .ROUTE ; Start at 08:34; Stop 11/26/18 at 08:35; Status DC Glycopyrrolate (Robinul) 1 mg STK-MED ONCE .ROUTE ; Start 11/26/18 at 08:35; Stop 11/26/18 at 08:36; Status DC Fentanyl Citrate (Fentanyl 2ml Vial) 100 mcg STK-MED ONCE .ROUTE ; Start at 08:56; Stop 11/26/18 at 08:57; Status DC Diphenhydramine HCl (Benadryl) 25 mg PRN Q6HRS PRN PO ITCHING; Start 11/26/18 at 10:15 Enoxaparin Sodium (Lovenox 40mg Syringe) 40 mg Q12HR SQ ; Start 11/26/18 at 21: 00 Sodium Chloride (Normal Saline Flush) 3 ml QSHIFT PRN IV AFTER MEDS AND BLOOD DRAWS; Start 11/26/18 at 10:15 Potassium Chloride/Sodium Chloride 1,000 ml @ 75 mls/hr [id number] IV ; Start 09/04 at 11:00 Dextrose (Dextrose 50%-Water Syringe) 12.5 gm PRN Q15MIN PRN IV SEE COMMENTS; Start 11/26/18 at 10:15 Oxycodone/ Acetaminophen (Percocet 5/325) 1 tab PRN Q4HRS PRN PO MILD PAIN, 1ST CHOICE; Start 11/26/18 at 10:15 Oxycodone/ Acetaminophen (Percocet 5/325) 2 tab PRN Q4HRS PRN PO MODERATE PAIN , SEVERE PAIN; Start 11/26/18 at 10:15 Hydromorphone HCl (Dilaudid) 1 mg PRN Q3HRS PRN IV PAIN; Start 11/26/18 at 10: 15 Docusate Sodium (Colace) 100 mg BID PO ; Start 11/26/18 at 11:00 Ondansetron HCl (Zofran) 4 mg PRN Q6HRS PRN IV NAUESA, 1ST CHOICE; Start at 10:15 Enoxaparin Sodium (Lovenox 40mg Syringe) 40 mg Q12H SQ ; Start 11/26/18 at 10:15 ; Stop 11/26/18 at 10:27; Status DC Vitals/I & O Vital Sign - Last 24 Hours 11/25/18 11/25/18 11/25/18 11/25/18 15:00 15:51 19:00 19:53 Temp 98.2 98.0 98.2 98.0 Pulse 78 72 Resp 16 18 20 B/P (MAP) 106/46 (66) 123/53 (76) Pulse Ox 98 98 98 O2 Delivery Room Air Room Air Room Air Room Air 11/25/18 11/25/18 11/26/18 11/26/18 20:00 23:00 02:45 05:06 Temp 98.2 97.8 98.2 97.8 Pulse 58 70 Resp 18 16 18 B/P (MAP) 125/44 (71) 132/50 (77) Pulse Ox 99 96 96 O2 Delivery Room Air Room Air Room Air Room Air 11/26/18 11/26/18 11/26/18 11/26/18 05:36 07:00 07:30 07:35 Temp 98.2 97.4 98.2 97.4 Pulse 62 63 Resp 20 18 13 B/P (MAP) 114/60 (78) 117/69 Pulse Ox 96 95 96 O2 Delivery Room Air Room Air Room Air Room Air 11/26/18 11/26/18 11/26/18 11/26/18 09:51 09:51 10:06 10:21 Temp 98.4 98.4 Pulse 70 58 68 Resp 20 20 20 B/P (MAP) 102/32 102/38 105/39 Pulse Ox 90 91 97 O2 Delivery Simple Mask Mask Simple Mask Simple Mask O2 Flow Rate 10 10 10 10 11/26/18 11/26/18 11/26/18 11/26/18 10:33 10:36 10:50 10:51 Temp 97.4 97.4 Pulse 78 78 Resp 20 20 20 B/P (MAP) 105/65 102/45 Pulse Ox 95 92 O2 Delivery Nasal Cannula Nasal Cannula Nasal Cannula Nasal Cannula O2 Flow Rate 2.0 2 2 2 SAUL BIRCH MD Nov 26, 2018 11:18
--- NOTE | 2018-11-26 11:30 | OP ---
DATE OF SURGERY: 11/26/2018 PREOPERATIVE DIAGNOSIS: Symptomatic cholelithiasis. POSTOPERATIVE DIAGNOSIS: Symptomatic cholelithiasis with acute cholecystitis. PROCEDURE: Laparoscopic cholecystectomy with cholangiogram. SURGEON: Stephen Joshi M.D. ANESTHESIA: General endotracheal. RIVETING MACHINE OPERATOR AUTOMATIC: FA. Maurice INTRAVENOUS FLUID: A liter. ESTIMATED BLOOD LOSS: 20 mL. INDICATIONS: The patient is a 23-year-old 3-week female with right upper quadrant pain and ultrasound showing stones. She is brought for cholecystectomy. OPERATIVE FINDINGS: The liver was smooth and sharp. The gallbladder was edematous and distended. Visual inspection of the remainder of the abdomen failed to reveal obvious abnormalities. DESCRIPTION OF PROCEDURE: The patient brought to the operating suite, given a general endotracheal anesthetic and the abdomen was prepped and draped in the usual sterile fashion. A supraumbilical incision was infiltrated with local anesthetic, incised and a 5 mm Visiport used to safely gain access into the abdominal cavity. Pneumoperitoneum established. Camera inserted. Inspection carried out with results as noted above. With the table in reverse Trendelenburg rolled to the left, the epigastric, midclavicular and lateral ports were placed under direct vision. Gallbladder retracted superolaterally and a small vessel adjacent to the cystic duct was clipped and divided. The duct was carefully exposed along with the cystic artery. The duct was clipped on the gallbladder side. Cholangiograms were made. This showed a mildly dilated biliary tree with no evidence of contrast draining into the duodenum. A milligram of glucagon was given and after 2 minutes circulation time, repeat films continued to show lack of contrast spilling into the duodenum. In light of this, the catheter was removed. The cystic duct was clipped x 3 and divided, taking care to avoid injury or compromise the common duct. The cystic artery was isolated, clipped and divided and gallbladder freed from the bed and placed in an EndoCatch bag. Hemostasis in the fossa with cautery and no evidence of bile leak was seen. A 19-[place] round Aj drain brought through the epigastric port out the lateral port, sewn to the skin with a silk stitch and left in the subhepatic space for postoperative drainage. Table returned to level. Gallbladder delivered through the epigastric incision. Epigastric incision closed with interrupted 0 Vicryl suture. Intra-abdominal pressure decreased to 6 cm of water. No bleeding from the epigastric closure or from the midclavicular port site after its removal or from the drain site. Abdomen decompressed, camera slowly removed, no bleeding seen. Skin incisions closed with subcuticular 4-0 Monocryl. Steri-Strips and sterile dressings applied. The patient awakened from her anesthetic and taken to the recovery room in satisfactory condition. STEPHEN JOSHI MD DR: NOBLE/raffi JOB#: [id number] / [id number] CHARISSE Silverman MD
--- NOTE | 2018-11-26 13:04 | NUR ---
SW following, discussed with RN. Pt having a procedure today. SW will continue to follow.
[2018-11-26] MEDS: oxyCODONE/APAP 5/325 1 TAB TABLET PO PRN ×3 (13:21→22:00)
--- NOTE | 2018-11-26 14:53 | PDOC ---
Subjective: Subjective: Family present. Abd sore, but feeling better. Objective: Vital Signs: Vital Signs Date Time Temp Pulse Resp B/P (MAP) Pulse Ox O2 Delivery O2 Flow Rate FiO2 11/26/18 13:21 90 Room Air 11/26/18 11:41 1.0 11/26/18 11:00 98.2 80 19 89/45 (60) 98.2 Labs: Laboratory Tests Test 11/26/18 10:35 Total Bilirubin 0.5 mg/dL Direct Bilirubin 0.3 mg/dL Aspartate Amino Transf (AST/SGOT) 68 U/L Alanine Aminotransferase (ALT/SGPT) 61 U/L Alkaline Phosphatase 146 U/L Total Protein 5.9 g/dL Albumin 2.7 g/dL Imaging: IOC IMPRESSION: Obstruction to flow of contrast into the duodenum which could be due to ampullary spasm versus obstruction by an occult calculus, stricture or neoplasm. PE: GEN: NAD LUNGS: CTAB HEART: RRR ABD: ice pack, drain NEURO/PSYCH: A & O 3 A/P: S/p cholecystectomy, abnormal IOC -- Follow LFTs. She says she is moving to [place] next week and her insurance expires at the end of the month so she would like to be aggressive with any recommended procedures. MARILOU MARIE Nov 26, 2018 14:53
[2018-11-26] MEDS: ENOXAPARIN 40 MG/0.4 ML SYRINGE. SQ SCH (21:12)
[2018-11-27] MEDS: POTASSIUM CL 20MEQ-0.45% NACL 1,000 ML IV SCH ×2 (00:20→07:17)
[2018-11-27 03:00] VITALS: BP 109/64
[2018-11-27] MEDS: oxyCODONE/APAP 5/325 1 TAB TABLET PO PRN ×2 (04:01→08:40)
[2018-11-27 04:41] LABS: BASO % 0 % (0-3); EOS % 0 % (0-3); HEMATOCRIT 32.3 % (36.0-47.0); HEMOGLOBIN 10.1 g/dL (12.0-15.5); LYMPH % 45 % (24-48); MEAN CORPUSCULAR HEMOGLOBIN 24 pg (25-35); MEAN CORPUSCULAR HGB CONC 31 g/dL (31-37); MEAN CORPUSCULAR VOLUME 78 fL (79-100); MONO # 0.5 x10^3/uL (0.0-1.1); MONO % 7 % (0-9); NEUT # 3.1 x10^3uL (1.8-7.7); NEUT % 47 % (31-73); PLATELET COUNT 425 x10^3/uL (140-400); RED BLOOD COUNT 4.13 x10^6/uL (3.50-5.40); RED CELL DISTRIBUTION WIDTH 16.2 % (11.5-14.5); WHITE BLOOD COUNT 6.7 x10^3/uL (4.0-11.0)
[2018-11-27 05:12] LABS: ALBUMIN/GLOBULIN RATIO 0.9 (1.0-1.7); CALCIUM 8.5 mg/dL (8.5-10.1); CREATININE 0.8 mg/dL (0.6-1.0); TOTAL PROTEIN 6.3 g/dL (6.4-8.2)
[2018-11-27 05:13] LABS: GFR 89.7; POTASSIUM 3.9 mmol/L (3.5-5.1); TOTAL BILIRUBIN 0.8 mg/dL (0.2-1.0)
[2018-11-27 07:29] VITALS: BP 106/42
[2018-11-27] MEDS: POLYETHYLENE GLYCOL 3350 17 GM PACKET. PO SCH (08:31)
[2018-11-27] MEDS: ENOXAPARIN 40 MG/0.4 ML SYRINGE. SQ SCH (08:33)
[2018-11-27] MEDS: DOCUSATE SODIUM 100 MG CAPSULE. PO SCH (08:33)
--- NOTE | 2018-11-27 10:51 | NUR ---
SW following for discharge planning. Discussed with RN, RN advised no SW needs at this time and anticipates pt may discharge home today with self care.
[2018-11-27 11:19] VITALS: BP 121/51
--- NOTE | 2018-11-27 11:33 | PDOC3 ---
Discharge Summary Visit Information Date of Admission: Nov 25, 2018 Date of Discharge: Nov 27, 2018 Admitting Diagnosis Comment: Cholelithiasis with cholecystitis, symptomatic - is/ post laparoscopic cholecystectomy 11/26/18 3 weeks Overweight, BMI 40 Final Diagnosis Problems Medical Problems: (1) Cholelithiasis Status: Acute Brief Hospital Course Allergies Allergies Coded Allergies Type Severity Reaction Last Updated Verified azithromycin Allergy Intermediate 11/26/18 Yes Vital Signs Vital Signs Date Time Temp Pulse Resp B/P (MAP) Pulse Ox O2 Delivery O2 Flow Rate FiO2 11/27/18 11:19 97.9 63 20 121/51 (74) 96 Room Air 97.9 11/26/18 12:45 3.0 Lab Results Laboratory Tests Test 11/26/18 10:35 11/27/18 04:04 11/27/18 04:05 Total Bilirubin 0.5 mg/dL (0.2-1.0) 0.8 mg/dL (0.2-1.0) Direct Bilirubin 0.3 mg/dL (0.0-0.2) Aspartate Amino Transf (AST/SGOT) 68 U/L (15-37) 240 U/L (15-37) Alanine Aminotransferase (ALT/SGPT) 61 U/L (14-59) 198 U/L (14-59) Alkaline Phosphatase 146 U/L (46-116) 214 U/L (46-116) Total Protein 5.9 g/dL (6.4-8.2) 6.3 g/dL (6.4-8.2) Albumin 2.7 g/dL (3.4-5.0) 3.0 g/dL (3.4-5.0) Sodium Level 141 mmol/L (136-145) Potassium Level 3.9 mmol/L (3.5-5.1) Chloride Level 106 mmol/L (98-107) Carbon Dioxide Level 28 mmol/L (21-32) Anion Gap 7 (6-14) Blood Urea Nitrogen 4 mg/dL (7-20) Creatinine 0.8 mg/dL (0.6-1.0) Estimated GFR (Cockcroft-Gault) 89.7 BUN/Creatinine Ratio 5 (6-20) Glucose Level 93 mg/dL (70-99) Calcium Level 8.5 mg/dL (8.5-10.1) Albumin/Globulin Ratio 0.9 (1.0-1.7) White Blood Count 6.7 x10^3/uL (4.0-11.0) Red Blood Count 4.13 x10^6/uL (3.50-5.40) Hemoglobin 10.1 g/dL (12.0-15.5) Hematocrit 32.3 % (36.0-47.0) Mean Corpuscular Volume 78 fL (79-100) Mean Corpuscular Hemoglobin 24 pg (25-35) Mean Corpuscular Hemoglobin Concent 31 g/dL (31-37) Red Cell Distribution Width 16.2 % (11.5-14.5) Platelet Count 425 x10^3/uL (140-400) Neutrophils (%) (Auto) 47 % (31-73) Lymphocytes (%) (Auto) 45 % (24-48) Monocytes (%) (Auto) 7 % (0-9) Eosinophils (%) (Auto) 0 % (0-3) Basophils (%) (Auto) 0 % (0-3) Neutrophils # (Auto) 3.1 x10^3uL (1.8-7.7) Lymphocytes # (Auto) 3.0 x10^3/uL (1.0-4.8) Monocytes # (Auto) 0.5 x10^3/uL (0.0-1.1) Eosinophils # (Auto) 0.0 x10^3/uL (0.0-0.7) Basophils # (Auto) 0.0 x10^3/uL (0.0-0.2) Laboratory Tests Test 11/27/18 04:04 11/27/18 04:05 Sodium Level 141 mmol/L (136-145) Potassium Level 3.9 mmol/L (3.5-5.1) Chloride Level 106 mmol/L (98-107) Carbon Dioxide Level 28 mmol/L (21-32) Anion Gap 7 (6-14) Blood Urea Nitrogen 4 mg/dL (7-20) Creatinine 0.8 mg/dL (0.6-1.0) Estimated GFR (Cockcroft-Gault) 89.7 BUN/Creatinine Ratio 5 (6-20) Glucose Level 93 mg/dL (70-99) Calcium Level 8.5 mg/dL (8.5-10.1) Total Bilirubin 0.8 mg/dL (0.2-1.0) Aspartate Amino Transf (AST/SGOT) 240 U/L (15-37) Alanine Aminotransferase (ALT/SGPT) 198 U/L (14-59) Alkaline Phosphatase 214 U/L (46-116) Total Protein 6.3 g/dL (6.4-8.2) Albumin 3.0 g/dL (3.4-5.0) Albumin/Globulin Ratio 0.9 (1.0-1.7) White Blood Count 6.7 x10^3/uL (4.0-11.0) Red Blood Count 4.13 x10^6/uL (3.50-5.40) Hemoglobin 10.1 g/dL (12.0-15.5) Hematocrit 32.3 % (36.0-47.0) Mean Corpuscular Volume 78 fL (79-100) Mean Corpuscular Hemoglobin 24 pg (25-35) Mean Corpuscular Hemoglobin Concent 31 g/dL (31-37) Red Cell Distribution Width 16.2 % (11.5-14.5) Platelet Count 425 x10^3/uL (140-400) Neutrophils (%) (Auto) 47 % (31-73) Lymphocytes (%) (Auto) 45 % (24-48) Monocytes (%) (Auto) 7 % (0-9) Eosinophils (%) (Auto) 0 % (0-3) Basophils (%) (Auto) 0 % (0-3) Neutrophils # (Auto) 3.1 x10^3uL (1.8-7.7) Lymphocytes # (Auto) 3.0 x10^3/uL (1.0-4.8) Monocytes # (Auto) 0.5 x10^3/uL (0.0-1.1) Eosinophils # (Auto) 0.0 x10^3/uL (0.0-0.7) Basophils # (Auto) 0.0 x10^3/uL (0.0-0.2) Brief Hospital Course Ms. Barroso is a 23 old female who is 3 weeks admitted because of symptomatic cholelithiasis with cholecystitis clinically and on ultrasound. was initially hesitant because she is 3 weeks , usually 6 weeks . The patient was severely symptomatic, Underwent surgery and tolerated it well. Doing well postop day #1 and is ready for discharge Has an indwelling SHERYL drain minimal drainage-we'll await for GS to see if okay to take it out Discharge discharge is follow-up GS 1-2 weeks Percocet on chart Proc perforemd cholecystectomy Discharge Information Condition at Discharge: Improved, Stable Follow Up: Weeks (1-2 weks ) Disposition/Orders: D/C to Home SAUL BIRCH MD Nov 27, 2018 11:33
--- NOTE | 2018-11-27 12:00 | PDOC ---
SURGICAL PROGRESS NOTE Subjective adequate pain control Vital Signs Vital Signs Date Time Temp Pulse Resp B/P (MAP) Pulse Ox O2 Delivery O2 Flow Rate FiO2 11/27/18 11:19 97.9 63 20 121/51 (74) 96 Room Air 97.9 11/26/18 12:45 3.0 I&O Intake and Output 11/27/18 06:59 Intake Total 200 ml Output Total 90 ml Balance 110 ml IV Total 200 ml Output Drainage Total 70 ml Estimated Blood Loss 20 ml # Voids 3 PATIENT HAS A FALL: No General: Alert, No acute distress Abdomen: Soft, Other (SHERYL with serosanguineous output) Labs Laboratory Tests Test 11/26/18 10:35 11/27/18 04:04 11/27/18 04:05 Total Bilirubin 0.5 mg/dL (0.2-1.0) 0.8 mg/dL (0.2-1.0) Direct Bilirubin 0.3 mg/dL (0.0-0.2) Aspartate Amino Transf (AST/SGOT) 68 U/L (15-37) 240 U/L (15-37) Alanine Aminotransferase (ALT/SGPT) 61 U/L (14-59) 198 U/L (14-59) Alkaline Phosphatase 146 U/L (46-116) 214 U/L (46-116) Total Protein 5.9 g/dL (6.4-8.2) 6.3 g/dL (6.4-8.2) Albumin 2.7 g/dL (3.4-5.0) 3.0 g/dL (3.4-5.0) Sodium Level 141 mmol/L (136-145) Potassium Level 3.9 mmol/L (3.5-5.1) Chloride Level 106 mmol/L (98-107) Carbon Dioxide Level 28 mmol/L (21-32) Anion Gap 7 (6-14) Blood Urea Nitrogen 4 mg/dL (7-20) Creatinine 0.8 mg/dL (0.6-1.0) Estimated GFR (Cockcroft-Gault) 89.7 BUN/Creatinine Ratio 5 (6-20) Glucose Level 93 mg/dL (70-99) Calcium Level 8.5 mg/dL (8.5-10.1) Albumin/Globulin Ratio 0.9 (1.0-1.7) White Blood Count 6.7 x10^3/uL (4.0-11.0) Red Blood Count 4.13 x10^6/uL (3.50-5.40) Hemoglobin 10.1 g/dL (12.0-15.5) Hematocrit 32.3 % (36.0-47.0) Mean Corpuscular Volume 78 fL (79-100) Mean Corpuscular Hemoglobin 24 pg (25-35) Mean Corpuscular Hemoglobin Concent 31 g/dL (31-37) Red Cell Distribution Width 16.2 % (11.5-14.5) Platelet Count 425 x10^3/uL (140-400) Neutrophils (%) (Auto) 47 % (31-73) Lymphocytes (%) (Auto) 45 % (24-48) Monocytes (%) (Auto) 7 % (0-9) Eosinophils (%) (Auto) 0 % (0-3) Basophils (%) (Auto) 0 % (0-3) Neutrophils # (Auto) 3.1 x10^3uL (1.8-7.7) Lymphocytes # (Auto) 3.0 x10^3/uL (1.0-4.8) Monocytes # (Auto) 0.5 x10^3/uL (0.0-1.1) Eosinophils # (Auto) 0.0 x10^3/uL (0.0-0.7) Basophils # (Auto) 0.0 x10^3/uL (0.0-0.2) Laboratory Tests Test 11/27/18 04:04 11/27/18 04:05 Sodium Level 141 mmol/L (136-145) Potassium Level 3.9 mmol/L (3.5-5.1) Chloride Level 106 mmol/L (98-107) Carbon Dioxide Level 28 mmol/L (21-32) Anion Gap 7 (6-14) Blood Urea Nitrogen 4 mg/dL (7-20) Creatinine 0.8 mg/dL (0.6-1.0) Estimated GFR (Cockcroft-Gault) 89.7 BUN/Creatinine Ratio 5 (6-20) Glucose Level 93 mg/dL (70-99) Calcium Level 8.5 mg/dL (8.5-10.1) Total Bilirubin 0.8 mg/dL (0.2-1.0) Aspartate Amino Transf (AST/SGOT) 240 U/L (15-37) Alanine Aminotransferase (ALT/SGPT) 198 U/L (14-59) Alkaline Phosphatase 214 U/L (46-116) Total Protein 6.3 g/dL (6.4-8.2) Albumin 3.0 g/dL (3.4-5.0) Albumin/Globulin Ratio 0.9 (1.0-1.7) White Blood Count 6.7 x10^3/uL (4.0-11.0) Red Blood Count 4.13 x10^6/uL (3.50-5.40) Hemoglobin 10.1 g/dL (12.0-15.5) Hematocrit 32.3 % (36.0-47.0) Mean Corpuscular Volume 78 fL (79-100) Mean Corpuscular Hemoglobin 24 pg (25-35) Mean Corpuscular Hemoglobin Concent 31 g/dL (31-37) Red Cell Distribution Width 16.2 % (11.5-14.5) Platelet Count 425 x10^3/uL (140-400) Neutrophils (%) (Auto) 47 % (31-73) Lymphocytes (%) (Auto) 45 % (24-48) Monocytes (%) (Auto) 7 % (0-9) Eosinophils (%) (Auto) 0 % (0-3) Basophils (%) (Auto) 0 % (0-3) Neutrophils # (Auto) 3.1 x10^3uL (1.8-7.7) Lymphocytes # (Auto) 3.0 x10^3/uL (1.0-4.8) Monocytes # (Auto) 0.5 x10^3/uL (0.0-1.1) Eosinophils # (Auto) 0.0 x10^3/uL (0.0-0.7) Basophils # (Auto) 0.0 x10^3/uL (0.0-0.2) Problem List Problems Medical Problems: (1) Cholelithiasis Status: Acute Assessment/Plan POD 1 l/s jo ann home today f/u Sunday in office for drain removal HOLDEN JOSHI MD Nov 27, 2018 12:00
--- NOTE | 2018-11-27 12:57 | PDOC ---
Subjective: Subjective: Doing better, tolerating PO - does have sharp RUQ pains randomly. Objective: Vital Signs: Vital Signs Date Time Temp Pulse Resp B/P (MAP) Pulse Ox O2 Delivery O2 Flow Rate FiO2 11/27/18 11:19 97.9 63 20 121/51 (74) 96 Room Air 97.9 11/26/18 12:45 3.0 Labs: Laboratory Tests Test 11/27/18 04:04 11/27/18 04:05 Sodium Level 141 mmol/L Potassium Level 3.9 mmol/L Chloride Level 106 mmol/L Carbon Dioxide Level 28 mmol/L Anion Gap 7 Blood Urea Nitrogen 4 mg/dL Creatinine 0.8 mg/dL Estimated GFR (Cockcroft-Gault) 89.7 BUN/Creatinine Ratio 5 Glucose Level 93 mg/dL Calcium Level 8.5 mg/dL Total Bilirubin 0.8 mg/dL Aspartate Amino Transf (AST/SGOT) 240 U/L Alanine Aminotransferase (ALT/SGPT) 198 U/L Alkaline Phosphatase 214 U/L Total Protein 6.3 g/dL Albumin 3.0 g/dL Albumin/Globulin Ratio 0.9 White Blood Count 6.7 x10^3/uL Red Blood Count 4.13 x10^6/uL Hemoglobin 10.1 g/dL Hematocrit 32.3 % Mean Corpuscular Volume 78 fL Mean Corpuscular Hemoglobin 24 pg Mean Corpuscular Hemoglobin Concent 31 g/dL Red Cell Distribution Width 16.2 % Platelet Count 425 x10^3/uL Neutrophils (%) (Auto) 47 % Lymphocytes (%) (Auto) 45 % Monocytes (%) (Auto) 7 % Eosinophils (%) (Auto) 0 % Basophils (%) (Auto) 0 % Neutrophils # (Auto) 3.1 x10^3uL Lymphocytes # (Auto) 3.0 x10^3/uL Monocytes # (Auto) 0.5 x10^3/uL Eosinophils # (Auto) 0.0 x10^3/uL Basophils # (Auto) 0.0 x10^3/uL PE: GEN: NAD, dressed to leave, family waiting, lunch tray empty LUNGS: room air NEURO/PSYCH: A & O 3 A/P: S/p cholecystectomy, abnormal IOC -- Bili remains normal. Elevation in AST, ALT, and Alk Phos noted. Plans for discharge and f/u w/ Dr. [place] for drain removal. MARILOU MARIE Nov 27, 2018 12:57
--- NOTE | 2018-11-27 13:10 | NUR ---
Discharge Note: [facility]I [place] [place] Discharge instructions and discharge home medications reviewed with Patient and a copy given. All questions have been answered and understanding verbalized. The following instructions and handouts were given: information about lap jo ann after care. Discontinued lines and drains: IV line in right AC removed, catheter tip intact. Patient discharged to home with self care, wheelchair used for mobility to discharge vehicle.
--- NOTE | 2018-11-29 15:06 | PATHOLOGY ---
[facility] Accession Number: [id number] . 01 Material submitted: . GALLBLADDER . 01 Clinical history: . Cholelithiasis . 02 Diagnosis: Gallbladder, laparoscopic cholecystectomy: - Cholelithiasis. - Chronic and focal acute cholecystitis with increased eosinophils. - Reactive changes of gallbladder neck lymph node. LBQ/11/29/2018 . 02 Comment: There is no evidence of malignancy. (JPM/db; 11/29/2018) . 02 Electronically signed: . Ky Abraham MD, Pathologist NPI- [id number] . 01 Gross description: . The specimen is received in formalin, labeled "[place]io, Lisandra, gallbladder", is a partially collapsed gallbladder measuring 9.0 x 3.0 x 1.4 cm with a glistening, sarmiento-purple serosa. The lumen is filled with yellow-green viscous bile admixed with several yellow bosselated calculi ranging from 0.2 cm up to 0.3 cm in greatest dimension and measuring 1.4 x 1.0 x 0.5 cm in aggregate. A sarmiento-pink, rubbery lymph node within the cystic duct region is identified measuring 1.0 x 0.7 x 0.5 cm. The mucosa is sarmiento-brown focally granular and the edematous wall has an average thickness of 0.2 cm. No discrete masses are identified. Director Of Social Services tissue is submitted in A1. ([facility]; 11/26/2018) SHS/SHS . 02 Pathologist provided ICD-10: K80.12 . 02 CPT . 760733 Specimen Comment: A courtesy copy of this report has been sent to Specimen Comment: [phone], , . Specimen Comment: Report sent to ,DR MAGAÑA / DR WARREN Specimen Comment: A duplicate report has been generated due to demographic updates. Performed at: 01 [facility] [address] [id number] MD Homer Florence MD Phone: [phone] Performed at: 02 [facility] [address] [place], [place] [id number] MD Ky Abraham MD Phone: [phone]
== END 2018-11-27 13:10 | disposition home or self-care (01) | DRG 769 ==
LOC: ER 01:53 → 4 NORTH 03:50
PROVIDERS: ADMIT Internal Medicine; ATTEND Internal Medicine
PROC: BF131ZZ Fluoroscopy of Gallbladder and Bile Ducts using Low Osmolar Contrast (ICD-10-PCS; 2018-11-26)
PROC: 0FT44ZZ Resection of Gallbladder, Percutaneous Endoscopic Approach (ICD-10-PCS; principal; 2018-11-26 08:30)
DX: O99.63 Diseases of the digestive system complicating the puerperium (principal); K80.00 Calculus of gallbladder with acute cholecystitis without obstruction; O90.89 Other complications of the puerperium, not elsewhere classified; R16.0 Hepatomegaly, not elsewhere classified; O99.215 Obesity complicating the puerperium; E66.9 Obesity, unspecified; O90.81 Anemia of the puerperium; K82.8 Other specified diseases of gallbladder; Z88.8 Allergy status to other drugs, medicaments and biological substances; D64.9 Anemia, unspecified
CPT/HCPCS: 36415; 74300; 76705; 80053; 80076; 81001; 81025; 83690; 85025; 87086; 88304; 96365; 96375; A7015; J0330; J0696; J1100; J1170; J1610; J1650; J2001; J2270; J2405; J2543; J2704; J2710; J3010; J3490; J7030; J7120; Q9967; 99285-25